=== PATIENT | female | born 1940 | race Caucasian/White ===

== ENCOUNTER 2017-01-30 19:33 | Emergency (ER) | payer MEDICARE, OTHER, SELFPAY | END 2017-01-30 20:13 | disposition home or self-care (01) | PROVIDERS: Emergency Provider Nurse Practitioner Family; Family Provider Family Medicine; Visit Provider Nurse Practitioner Family | DX: N39.0 Urinary tract infection, site not specified (principal); R31.9 Hematuria, unspecified | CPT/HCPCS: 81003; 87086; 87088; 99201 ==

== ENCOUNTER 2018-04-11 16:00 | Outpatient (RCR) | payer MEDICARE, OTHER, SELFPAY ==
--- NOTE | 2018-02-12 14:18 | HMH.PTOPWND ---
Rehab Outpt Wound Evaluation Rehab OP Wound Evaluation Start: 02/12/18 14:11 Freq: Status: Active Protocol: Document 02/12/18 14:11 RAYMOND (Rec: 02/12/18 14:18 PHORNE [id number]) Electronically Signed By Barry Maher, PT 02/12/18 14:11 Subjective/History History History Pt is 77 yowf who presents with c/o worsening right LE edema over the past 2-3 yrs. She reports that she underwent a radical hysterectomy ~ 30 yrs ago with removal of multiple lymph nodes from her abdomen. She reports only very mild edema until recently, and only in the right LE. She reports mild discomfort in the right LE and little edema above the knee. She reports no other significant PMH. Lymphedema Eval Classification of Lymphedema Secondary Lymphedema Yes Stemmer's sign Stemmer's Sign no Stage of Lymphedema Lymphedema stages Stage II (Pitting edema, increased fibrosis w/ decreased pitting) Skin Changes Dry Skin Yes Redness Yes Discoloration of Skin Yes Pain Scale Pain Scale (0-10) 2 Affected Extremities Areas Affected by Lymphedema/Edema Abdomen Right Lower Extremity Manual Lymphatic Drainage Treatment Area MLD Treatment Area Abdomen Right Lower Extremity Wound Problems/Impairments Impairments Problems/Impairmments Palpation Tenderness Increased Edema Lymphedema Present Subjective C/O Pain Impaired Self Care/Self Management Prognosis Rehab Potential Good Clinical Impression Consistent with Diagnosis Yes Short Term Goals Number of Weeks 4 Decreased Palpation Tenderness Yes: to min Decrease Subjective C/O Pain Yes: 1/10 Patient to Understand Lymphedema Yes Treatment and Exercises Decrease Girth Measurments by (cm) Yes: by 5 cm [employer] Goals Number of Weeks 8 Decreased Palpation Tenderness Yes: to none Decrease Subjective C/O Pain Yes: 0/10 Patient to be Ind w/ HEP Yes Patient to be Ind w/ Don[place] Yes Compression Garments Patient to Adhere Lymphedema Precautions Yes Decrease Girth Measurments by (cm) Yes:
== END 2018-04-11 16:05 | disposition home or self-care (01) ==
LOC: PT 16:00
PROVIDERS: Visit Provider Family Medicine
DX: I89.0 Lymphedema, not elsewhere classified (principal)
CPT/HCPCS: 97140; 97162; 97760

== ENCOUNTER → 2018-07-28 08:28 | Outpatient (CLI) | payer MEDICARE, OTHER, SELFPAY ==
[2018-07-28 11:07] LABS: Alanine Aminotransferase 28 U/L (12-78); Albumin Level 3.6 gm/dL (3.4-5.0); Albumin/Globulin Ratio 1.2 (1.1-1.8); Alkaline Phosphatase 106 U/L (46-116); Anion Gap 14.5 mEq/L (5-15); Aspartate Amino Transferase 26 U/L (15-37); Bilirubin,Total 0.7 mg/dL (0.2-1.0); Blood Urea Nitrogen 15 mg/dL (7-18); Calcium 8.8 mg/dL (8.5-10.1); Carbon Dioxide 26 mmol/L (21.0-32.0); Chloride 108 mmol/L (98-107); Cholesterol 133 mg/dL (140-200); Creatinine,Serum 0.73 mg/dL (0.55-1.02); Estimated Glomerular Filt Rate 77 ml/min (>60); GFR (African American) 93 ML/MIN (>60); Glucose 89 mg/dL (74-106); HDL Cholesterol 67 mg/dL (29-89); LDL Cholesterol 56 mg/dL (0-130); Potassium 4.5 mmoL/L (3.5-5.1); Sodium 144 mmol/L (136-145); Total Protein,Serum 6.6 gm/dL (6.4-8.2); Triglycerides 50 mg/dL (30-200); VLDL Cholesterol 10 mg/dL (0-40)
== END ==
PROVIDERS: Visit Provider Family Medicine
DX: E78.5 Hyperlipidemia, unspecified (principal)
CPT/HCPCS: 36415; 80053; 80061

== ENCOUNTER → 2019-06-23 10:19 | Outpatient (CLI) | payer MEDICARE, OTHER, SELFPAY ==
[2019-06-24 18:25] LABS: Covid-19 Nasal PCR Sendout UK Not Detected
== END ==
PROVIDERS: PCP Family Medicine; Visit Provider Ophthalmology
DX: Z03.818 Encounter for observation for suspected exposure to other biological agents ruled out (principal)
CPT/HCPCS: U0003

== ENCOUNTER 2019-06-25 08:05 | Day surgery (SDC) | payer MEDICARE, OTHER, SELFPAY ==
--- NOTE | 2019-06-20 12:16 | SUR.PREOP ---
06/20/2019 @1217--PHONE CALL MADE TO PATIENT. PATIENT UNDERSTANDS THAT LAB WORK AND COVID TESTING NEEDS TO BE COMPLETED @ 1030 ON 06/23/2019 . PATIENT UNDERSTANDS IF LAB WORK AND COVID-19 TESTS ARE NOT COMPLETED BY 12PM ON THAT DATE, THE SURGERY SCHEDULED WILL BE CANCELLED AND RESCHEDULED FOR ANOTHER TIME.
[2019-06-24 14:19] VITALS: BMI 25.7
[2019-06-25] VITALS (8 sets, daily range): BP systolic 121–168; BP diastolic 67–78; PULSE 67–78; RESP 16–18; TEMP 36.5–36.6; O2SAT 96–100
== END 2019-06-25 09:49 | disposition home or self-care (01) ==
LOC: OR 08:08
PROVIDERS: PCP Family Medicine; Visit Provider Ophthalmology
DX: H25.811 Combined forms of age-related cataract, right eye (principal); Z79.899 Other long term (current) drug therapy
CPT/HCPCS: 66984; V2632

== ENCOUNTER → 2019-07-08 09:15 | Outpatient (CLI) | payer MEDICARE, OTHER, SELFPAY ==
[2019-07-08 11:35] LABS: Coronavirus 19 IgG Antibody Negative (Negative); Coronavirus 19 IgM Antibody Negative (Negative)
== END ==
PROVIDERS: Visit Provider Ophthalmology
DX: Z01.818 Encounter for other preprocedural examination (principal)
CPT/HCPCS: 36415; 86328

== ENCOUNTER 2019-07-09 07:22 | Day surgery (SDC) | payer MEDICARE, OTHER, SELFPAY ==
--- NOTE | 2019-07-03 11:21 | SUR.PREOP ---
07/03/2019 @ 9546--PHONE CALL MADE TO PATIENT. PATIENT UNDERSTANDS THAT LAB WORK AND COVID TESTING NEEDS TO BE COMPLETED @ 930 ON 07/08/2019. PATIENT UNDERSTANDS IF LAB WORK AND COVID-19 TESTS ARE NOT COMPLETED BY 12PM ON THAT DATE, THE SURGERY SCHEDULED WILL BE CANCELLED AND RESCHEDULED FOR ANOTHER TIME.
[2019-07-09 08:12] VITALS: BP 170/82; PULSE 68; RESP 18; TEMP 36.6; O2SAT 99; BMI 24.9
[2019-07-09 08:56] VITALS: BP 184/84; PULSE 67; RESP 20; O2SAT 100
[2019-07-09 09:01] VITALS: BP 168/82; PULSE 63; RESP 18; O2SAT 100
[2019-07-09 09:06] VITALS: BP 156/74; PULSE 63; RESP 18; O2SAT 100
[2019-07-09 09:11] VITALS: BP 145/70; PULSE 62; RESP 18; O2SAT 100
[2019-07-09 09:31] VITALS: BP 147/80; PULSE 60; RESP 20; TEMP 36.4; O2SAT 99
== END 2019-07-09 09:31 | disposition home or self-care (01) ==
LOC: OR 07:24
PROVIDERS: PCP Family Medicine; Visit Provider Ophthalmology
DX: H25.813 Combined forms of age-related cataract, bilateral (principal); M19.90 Unspecified osteoarthritis, unspecified site; Z80.9 Family history of malignant neoplasm, unspecified; Z83.518 Family history of other specified eye disorder; Z90.710 Acquired absence of both cervix and uterus; Z79.899 Other long term (current) drug therapy; H53.149 Visual discomfort, unspecified
CPT/HCPCS: 66984; V2632

== ENCOUNTER 2019-11-21 18:23 | Emergency (ER) | payer MEDICARE, OTHER, SELFPAY ==
[2019-11-21] VITALS (9 sets, daily range): BP systolic 138–169; BP diastolic 66–89; PULSE 64–94; RESP 16–18; TEMP 36.6; O2SAT 94–98; BMI 27.8
--- NOTE | 2019-11-21 18:48 | CT_ITS ---
PROCEDURE: CT ABDOMEN PELVIS W CON CLINICAL INDICATION: lower abd pain, hernia Abdominal pain and distension common bloating and constipation COMPARISON: No exams were available for comparison TECHNIQUE: IV Contrast: 75ML OPTIRAY 350 Oral Contrast None Axial images obtained with sagittal and coronal reformats. All CT scans at the facility use one or more dose reduction, viz: automated exposure control, ma/kV adjustment per patient size (including targeted exams where dose is matched to indication, i.e. head), or iterative reconstruction technique. FINDINGS: There are mild atelectatic changes in the lung bases. Hiatal hernia is noted. The liver, spleen, adrenal glands, pancreas, and right kidney has an unremarkable appearance. There is a small left renal cyst at 18 mm. No radiopaque gallstones. No evidence of small-bowel obstruction. There is a moderate amount of stool and gas with distension of the colon involving the cecum, ascending colon transverse colon and descending colon. Air-fluid levels are present.. Scattered diverticular present within the sigmoid colon. No evidence of acute diverticulitis. The there is mild colonic wall thickening in the region of the distal descending colon and proximal sigmoid colon suggesting colitis. The sigmoid colon is not distended with stool ball noted in the mid sigmoid colon. There is narrowing of the sigmoid colon just distal to this region. Possible stricture at this area. The appendix is not clearly delineated. Multiple surgical clips are present in the lower abdomen and pelvis. There is some mild stranding of the fat in the lower pelvic region anteriorly. There is mild distention of the urinary bladder. There has been a prior hysterectomy. Lumbar scoliosis convex left. Mild degenerative changes of the hips and spine. Mild wedging superior endplate of L2 and T12. Small umbilical hernia containing fat. IMPRESSION: 1. Moderate distension and dilatation of the colon to the level of the mid sigmoid colon with transition to nondilated distal: Were small stool ball is present possibly due to a stricture at this region. 2. Mild wall thickening and stranding involving the distal descending colon and proximal sigmoid colon suggesting colitis. 3. Hiatal hernia with other nonacute findings as described above Dictated by: Bruce Burt MD 11/22/2019 06:09 Bruce Burt MD in [facility] 11/22/2019 06:09
[2019-11-21 19:08] LABS: Basophils % 0.3 % (0.1-2.0); Eosinophils # 0.1 K/mm3 (0.0-0.4); Eosinophils % 0.8 % (0.1-12.0); Hematocrit 46.5 % (37.0-47.0); Hemoglobin 14.2 g/dL (12.2-16.2); Lymphocytes # 0.7 K/mm3 (0.7-4.5); Lymphocytes % 5.7 % (10-50); Mean Corpuscular HGB Conc 30.5 g/dL (31.8-35.4); Mean Corpuscular Hemoglobin 28.3 pg (27.0-31.2); Monocytes # 0.5 K/mm3 (0.1-1.0); Monocytes % 3.9 % (1.7-9.3); Neutrophils # 10.9 K/mm3 (1.8-7.8); Neutrophils % 89.3 % (37.0-80.0); Platelet Count 221 K/mm3 (142-424); White Blood Count 12.1 K/mm3 (4.8-10.8)
[2019-11-21 19:11] LABS: MANUAL DIFFERENTIAL MANUAL DIFFERENTIAL (MANUAL DIFF)
--- NOTE | 2019-11-21 19:21 | HMH.EDABDPAI ---
ED Disposition Clinical Impression: Abdominal pain Qualifiers: Abdominal location: generalized Qualified Code(s): R10.84 - Generalized abdominal pain Abdominal hernia Qualifiers: Hernia type: ventral Obstruction and gangrene presence: without obstruction or gangrene Qualified Code(s): K43.9 - Ventral hernia without obstruction or gangrene Disposition: Still a Patient Condition on Discharge: Fair Instructions: DI for Acute Abdomen Referrals: Surya Mitchell MD [Primary Care Provider] - - Critical Care Critical Care Time: No Attestation: On 11/21/19, the high probability of a clinically significant, sudden or life threatening deterioration of the following system(s) required my full and direct attention, intervention and personal management. The time I documented below is in addition to time spent performing reported procedures but includes the following listed in this critical care notation. Medical Decision Making - Medical Records Medical records reviewed: Yes: I reviewed the patient's medical records. - [place] Inquiry Pt receiving controlled substance: No Vital Signs: 11/21/19 18:24 Temperature 98 F Temperature Source Oral Pulse Rate [Radial] 88 Respiratory Rate 16 Blood Pressure [Right Arm] 161/89 H Blood Pressure Mean [Right Arm] 113 Blood Pressure Position [Right Arm] Sitting 02 Sat by Pulse Oximetry 98 Oxygen Delivery Method Room Air - Lab Data Lab Results 11/21/19 18:55: WBC 12.1 H, RBC 5.00, Hgb 14.2, Hct 46.5, MCV 93.0, MCH 28.3, MCHC 30.5 L, RDW 14.0, Plt Count 221, MPV 9.0, Neut % (Auto) 89.3 H, Lymph % (Auto) 5.7 L, [place] % (Auto) 3.9, Eos % (Auto) 0.8, Baso % (Auto) 0.3, Neut # (Auto) 10.9 H, Lymph # (Auto) 0.7, [place] # (Auto) 0.5, Eos # (Auto) 0.1, Baso # (Auto) 0.0, Total Counted 100, Neutrophils % (Manual) 90 H, Band Neutrophils % 2.0, Lymphocytes % (Manual) 5 L, Monocytes % (Manual) 3, Platelet Estimate Normal, RBC Morphology Normal, Hypochromasia 1+, Stomatocytes 1+ 11/21/19 18:55: Sodium 138, Potassium 3.7, Chloride 99, Carbon Dioxide 32 H, Anion Gap 10.7, BUN 18 H, Creatinine 0.70, Estimated Creat Clear 51, Estimated GFR 81, Est GFR ( Amer) 98, Glucose 144 H, Calcium 9.0, Total Bilirubin 0.7, AST 46 H, ALT 23, Alkaline Phosphatase 115, Total Protein 7.8, Albumin 4.5, Globulin 3.3 H, Albumin/Globulin Ratio 1.4 11/21/19 19:32: Lactate 1.1 Result diagrams: 11/21/19 18:55 11/21/19 18:55 Orders (Tests/Meds): ED MEDICATIONS Generic Name Dose Route Start Last Admin Trade Name Freq PRN Reason Stop Dose Admin Sodium Chloride 1,000 mls @ 999 mls/hr 11/21/19 19:15 11/21/19 19:03 Sod Chlor 0.9% 1000ml Bag IV 11/21/19 20:15 999 mls/hr .[id number] NIRMAL Administration Discontinued Medications Generic Name Dose Route Start Last Admin Trade Name Freq PRN Reason Stop Dose Admin Morphine Sulfate 2 mg 11/21/19 19:02 11/21/19 19:03 Morphine 2mg/Ml Syringe IV 11/21/19 19:03 2 mg ONCE ONE Administration Morphine Sulfate 2 mg 11/21/19 19:55 11/21/19 19:58 Morphine 2mg/Ml Syringe IV 11/21/19 19:56 2 mg ONCE ONE Administration Ondansetron HCl 4 mg 11/21/19 19:02 11/21/19 19:03 Ondansetron 4mg/2ml Vial IV 11/21/19 19:03 4 mg ONCE ONE Administration Ondansetron HCl 4 mg 11/21/19 19:56 11/21/19 19:58 Ondansetron 4mg/2ml Vial IV 11/21/19 19:57 4 mg ONCE ONE Administration ORDERS Category Date Time Status CT abdomen pelvis w con Stat Cat Scan 11/21/19 18:48 Ordered UA [Urinalysis and Microscopic] Stat Lab 11/21/19 18:48 Ordered Medical Decision Narrative: In summary this is a 79-year-old female presenting to the emergency department with lower abdominal pain. Patient clinically stable on arrival. Concern for ventral hernia, bowel obstruction, incarceration, urinary tract infection. Plan to obtain CBC, CMP, lipase, lactate, urinalysis, CT scan of the abdomen and pelvis. Patient given 4 mg of IV morphine and 4 mg
--- NOTE | 2019-11-21 19:25 | PC.NURSE ---
received report on this patient. noted family member present at bedside to be staring out of curtain. received call from registration that additional family member was out there. advised registration that due to nature of our census influx, we can allow one visitor at a time. registration acknowledged.
[2019-11-21 19:32] LABS: Lymphocytes % 5 % (10-50); Monocytes % 3 % (2-9); Neutrophils % 90 % (42-76); Total Cells Counted 100
[2019-11-21 19:33] LABS: Hypochromasia 1+; Platelet Estimate Normal; RBC Morphology Normal; Stomatocytes 1+
[2019-11-21 19:39] LABS: Chloride 99 mmol/L (98-107)
[2019-11-21 19:40] LABS: Potassium 3.7 mmoL/L (3.5-5.1); Sodium 138 mmol/L (136-145)
[2019-11-21 19:42] LABS: Alanine Aminotransferase 23 U/L (12-78); Aspartate Amino Transferase 46 U/L (14-36); Blood Urea Nitrogen 18 mg/dl (7-17); Creatinine Clearance Estimated 51 mL/min (50-200); Estimated Glomerular Filt Rate 81 ml/min (>60); GFR (African American) 98 ML/MIN (>60)
[2019-11-21 19:43] LABS: Albumin Level 4.5 g/dl (3.5-5.0); Albumin/Globulin Ratio 1.4 (1.1-1.8); Alkaline Phosphatase 115 U/L (38-126); Anion Gap 10.7 mEq/L (5-15); Bilirubin,Total 0.7 mg/dl (0.2-1.3); Carbon Dioxide 32 mmol/L (22.0-30.0); Globulin 3.3 g/dL (1.3-3.2); Glucose 144 mg/dl (74-100); Total Protein,Serum 7.8 g/dl (6.3-8.2)
[2019-11-21 19:49] LABS: Lactic Acid 1.1 mmol/L (0.7-2.1)
--- NOTE | 2019-11-21 19:58 | PC.NURSE ---
meds given per staff for complaints of pain and nausea. approached room for datascope replacement and patient's family member was directly antagonistic without being provoked; offered that they shouldn't have come here(per daughter); and when questioned, daughter just wouldn't give a direct answer. patient offered that if something was surgically wrong with her that she would want transferred. md and nursing made aware of comments.
--- NOTE | 2019-11-21 21:01 | PC.NURSE ---
this nurse asked pt is she was able to use the bathroom for a urine sample. pt family member stated well one of your nurses asked for a urine hours ago and never came back to get it this nurse apologized and stated they just needed to let the staff know when the pt expressed she was ready to use the bathroom. this nurse asked the pt is she felt like she was able to give a urine at this time and the pt stated she was still unable to go.
[2019-11-21 21:41] LABS: Amylase 92 U/L (30-110); Lipase 22 U/L (23-300)
--- NOTE | 2019-11-21 21:41 | PC.NURSE ---
pt asked if she could have some ice chips.
--- NOTE | 2019-11-21 21:50 | PC.NURSE ---
urine collected from pt
--- NOTE | 2019-11-21 21:52 | PC.NURSE ---
speaking with Dr. Hendricks
--- NOTE | 2019-11-21 21:53 | PC.NURSE ---
this nurse went in and explained to the pt that she could have some ice chips at this time but that she would be made NPO after midnight per the MD. the pt family membr stated shes not staying that doctor needs to come in here and tell us what he found on her scans this nurse explained to the pt that the MD was on the phone with another doctor consulting her care and that he would be in in just a moment to explain everything and answer any questions. this nurse asked if the pt would like ice chips in the mean time and the pt stated no go get the doctor.
--- NOTE | 2019-11-21 21:55 | PC.NURSE ---
notified pt wanted to speak with him and that they were refusing to be admitted. stated pt needs to sign AMA form
[2019-11-21 21:59] LABS: Microscopic, Urine URINE MICROSCOPIC (MICROSCOPIC)
[2019-11-21 22:02] LABS: Appearance,Urine TURBID (Clear); Bilirubin,Urine Negative (Negative); Blood, Urine Negative (Negative); Color,Urine YELLOW (Yellow); Glucose,Urine (UA) Negative (Negative); Ketones,Urine TRACE (Negative); Leukocyte Esterase,Urine Negative (Negative); Nitrate,Urine Negative (Negative); PH,Urine 8.5 (5.0-8.5); Protein,Urine Negative (Negative); Specific Gravity, Urine 1.015 (1.005-1.030); Urobilinogen,Urine 0.2 EU/dl (0.2)
--- NOTE | 2019-11-21 22:07 | PC.NURSE ---
pt stated she was going to sign out AMA. this nurse asked if she wanted to stay and receive her IV antibiotics before leaving and the pt refused those as well. pt stated she might go to another hospital but isnt sure. this nurse told her we would provide her with a disk with her imaging on it.
--- NOTE | 2019-11-21 22:09 | PC.NURSE ---
called RAD for disk with [facility] and not reports.
[2019-11-21 22:20] LABS: Bacteria,Urine 2+ /lpf; RBC,Urine Occasional #/hpf (0-3); Squamous Epithelial Cell,Urine Occasional #/hpf (0-5)
[2019-11-21 22:21] LABS: Amorphous Sediment,Urine 4+ /lpf
== END 2019-11-21 22:42 | disposition still patient (30) ==
PROVIDERS: Emergency Medicine; Emergency Provider Emergency Medicine; PCP Family Medicine
DX: K52.9 Noninfective gastroenteritis and colitis, unspecified (principal); R10.84 Generalized abdominal pain; K43.9 Ventral hernia without obstruction or gangrene; Z85.41 Personal history of malignant neoplasm of cervix uteri; Z79.899 Other long term (current) drug therapy
CPT/HCPCS: 74177; 80053; 81001; 82150; 83605; 83690; 85007; 85025; 87086; 96365; 96375; 96376; 99283; J2405; Q9967

== ENCOUNTER → 2021-04-01 08:49 | Outpatient (CLI) | payer MEDICARE, OTHER, SELFPAY ==
[2021-04-01 09:37] LABS: Basophils % 0.5 % (0.1-2.0); Eosinophils # 0.2 K/mm3 (0.0-0.4); Eosinophils % 4.5 % (0.1-12.0); Hematocrit 40.8 % (37.0-47.0); Hemoglobin 13.5 g/dL (12.2-16.2); Lymphocytes # 1.3 K/mm3 (0.7-4.5); Lymphocytes % 29.1 % (10-50); Mean Corpuscular HGB Conc 33.2 g/dL (31.8-35.4); Mean Corpuscular Volume 96.3 fl (81-99); Mean Platelet Volume 8.3 fl (7.4-10.4); Monocytes # 0.3 K/mm3 (0.1-1.0); Neutrophils # 2.6 K/mm3 (1.8-7.8); Neutrophils % 59.8 % (37.0-80.0); Platelet Count 228 K/mm3 (142-424); Red Blood Count 4.24 M/mm3 (4.20-5.40); Red Cell Distribution Width 13.3 % (11.5-17.5); White Blood Count 4.4 K/mm3 (4.8-10.8)
[2021-04-01 10:02] LABS: Chloride 107 mmol/L (98-107); Potassium 4.2 mmoL/L (3.5-5.1); Sodium 138 mmol/L (136-145)
[2021-04-01 10:04] LABS: Alanine Aminotransferase 17 U/L (12-78); Blood Urea Nitrogen 17 mg/dl (7-17); Estimated Glomerular Filt Rate 80 ml/min (>60); GFR (African American) 97 ML/MIN (>60)
[2021-04-01 10:05] LABS: Albumin/Globulin Ratio 1.5 (1.1-1.8); Alkaline Phosphatase 112 U/L (38-126); Anion Gap 9.2 mEq/L (5-15); Aspartate Amino Transferase 31 U/L (14-36); Bilirubin,Total 0.6 mg/dl (0.2-1.3); Calcium 8.5 mg/dl (8.4-10.2); Carbon Dioxide 26 mmol/L (22.0-30.0); Chol/HDL Ratio 2.5 (1-3.5); Cholesterol 146 mg/dl (140-200); Globulin 2.6 g/dL (1.3-3.2); Glucose 94 mg/dl (74-100); HDL Cholesterol 58 mg/dl (40-60); Total Protein,Serum 6.6 g/dl (6.3-8.2); Triglycerides 77 mg/dl (30-150); VLDL Cholesterol 15 mg/dL (0-40)
[2021-04-01 10:16] LABS: Direct LDL Cholesterol 63.33 mg/dL (100-129)
== END ==
PROVIDERS: Visit Provider Family Medicine
DX: F32.9 Major depressive disorder, single episode, unspecified (principal); E78.5 Hyperlipidemia, unspecified
CPT/HCPCS: 36415; 80053; 80061; 85025

== ENCOUNTER → 2021-10-27 09:28 | Outpatient (CLI) | payer MEDICARE, OTHER, SELFPAY ==
[2021-10-27 10:09] LABS: Basophils # 0.1 K/mm3 (0-0.2); Basophils % 1.2 % (0.1-2.0); Eosinophils # 0.2 K/mm3 (0.0-0.4); Eosinophils % 3.7 % (0.1-12.0); Hematocrit 42.3 % (37.0-47.0); Hemoglobin 13.9 g/dL (12.2-16.2); Lymphocytes # 1.2 K/mm3 (0.7-4.5); Lymphocytes % 20.4 % (10-50); Mean Corpuscular HGB Conc 32.8 g/dL (31.8-35.4); Mean Corpuscular Hemoglobin 31.8 pg (27.0-31.2); Mean Platelet Volume 8.7 fl (7.4-10.4); Monocytes # 0.4 K/mm3 (0.1-1.0); Monocytes % 6.7 % (1.7-9.3); Neutrophils # 4.1 K/mm3 (1.8-7.8); Platelet Count 292 K/mm3 (142-424); Red Blood Count 4.36 M/mm3 (4.20-5.40); White Blood Count 6.1 K/mm3 (4.8-10.8)
[2021-10-27 12:08] LABS: Chloride 103 mmol/L (98-107); Sodium 141 mmol/L (136-145)
[2021-10-27 12:09] LABS: Potassium 4.1 mmoL/L (3.5-5.1)
[2021-10-27 12:11] LABS: Alanine Aminotransferase 19 U/L (12-78); Albumin Level 4.4 g/dl (3.5-5.0); Albumin/Globulin Ratio 1.5 (1.1-1.8); Alkaline Phosphatase 148 U/L (38-126); Anion Gap 11.1 mEq/L (5-15); Aspartate Amino Transferase 36 U/L (14-36); Bilirubin,Total 0.5 mg/dl (0.2-1.3); Blood Urea Nitrogen 25 mg/dl (7-17); Carbon Dioxide 31 mmol/L (22.0-30.0); Estimated Glomerular Filt Rate 60 ml/min (>60); GFR (African American) 73 ML/MIN (>60); Globulin 2.9 g/dL (1.3-3.2); Total Protein,Serum 7.3 g/dl (6.3-8.2)
[2021-10-27 12:12] LABS: Calcium 8.9 mg/dl (8.4-10.2); Chol/HDL Ratio 3.1 (1-3.5); Cholesterol 176 mg/dl (140-200); Glucose 100 mg/dl (74-100); HDL Cholesterol 56 mg/dl (40-60); Triglycerides 107 mg/dl (30-150); VLDL Cholesterol 21 mg/dL (0-40)
[2021-10-27 12:23] LABS: Direct LDL Cholesterol 73.58 mg/dL (100-129)
== END ==
PROVIDERS: PCP Family Medicine; Visit Provider Family Medicine
DX: R53.83 Other fatigue (principal); R60.0 Localized edema; E78.5 Hyperlipidemia, unspecified
CPT/HCPCS: 36415; 80053; 80061; 84443; 85025

== ENCOUNTER → 2022-09-28 08:25 | Outpatient (CLI) | payer MEDICARE, OTHER, SELFPAY ==
[2022-09-28 08:53] LABS: Basophils % 0.3 % (0.1-2.0); Eosinophils # 0.4 K/mm3 (0.0-0.4); Eosinophils % 7.5 % (0.1-12.0); Hematocrit 40.9 % (37.0-47.0); Hemoglobin 13.3 g/dL (12.2-16.2); Lymphocytes # 1.2 K/mm3 (0.7-4.5); Lymphocytes % 21.7 % (10-50); Mean Corpuscular HGB Conc 32.5 g/dL (31.8-35.4); Mean Corpuscular Hemoglobin 32.3 pg (27.0-31.2); Mean Corpuscular Volume 99.2 fl (81-99); Mean Platelet Volume 8.6 fl (7.4-10.4); Monocytes # 0.3 K/mm3 (0.1-1.0); Monocytes % 5.8 % (1.7-9.3); Neutrophils # 3.4 K/mm3 (1.8-7.8); Neutrophils % 64.6 % (37.0-80.0); Platelet Count 230 K/mm3 (142-424); Red Blood Count 4.12 M/mm3 (4.20-5.40); Red Cell Distribution Width 13.3 % (11.5-17.5); White Blood Count 5.3 K/mm3 (4.8-10.8)
[2022-09-28 09:21] LABS: Chloride 100 mmol/L (98-107); Sodium 138 mmol/L (136-145)
[2022-09-28 09:24] LABS: Alanine Aminotransferase 22 U/L (12-78); Albumin Level 3.9 g/dl (3.5-5.0); Albumin/Globulin Ratio 1.4 (1.1-1.8); Alkaline Phosphatase 117 U/L (38-126); Aspartate Amino Transferase 34 U/L (14-36); Bilirubin,Total 0.7 mg/dl (0.2-1.3); Blood Urea Nitrogen 32 mg/dl (7-17); Calcium 9.5 mg/dl (8.4-10.2); Carbon Dioxide 28 mmol/L (22.0-30.0); Cholesterol 134 mg/dl (140-200); Estimated Glomerular Filt Rate 43 ml/min (>60); GFR (African American) 52 ML/MIN (>60); Globulin 2.8 g/dL (1.3-3.2); Glucose 93 mg/dl (74-100); Total Protein,Serum 6.7 g/dl (6.3-8.2); Triglycerides 48 mg/dl (30-150); VLDL Cholesterol 10 mg/dL (0-40)
[2022-09-28 09:25] LABS: Chol/HDL Ratio 2.9 (1-3.5); HDL Cholesterol 47 mg/dl (40-60); Magnesium 2.4 mg/dl (1.6-2.3)
[2022-09-28 09:36] LABS: Direct LDL Cholesterol 64.27 mg/dL (100-129)
[2022-09-28 09:41] LABS: 25-OH Vitamin D, Total 28.8 ng/mL (30-100)
[2022-09-28 09:54] LABS: Thyroid Stimulating Hormone 0.11 uIU/mL (0.465-4.68)
== END ==
PROVIDERS: PCP Family Medicine; Visit Provider Family Medicine
DX: R53.83 Other fatigue (principal); R42 Dizziness and giddiness; E78.5 Hyperlipidemia, unspecified; E55.9 Vitamin D deficiency, unspecified
CPT/HCPCS: 36415; 80053; 80061; 82306; 83735; 84443; 85025

== ENCOUNTER → 2022-10-19 14:43 | Outpatient (CLI) | payer MEDICARE, OTHER, SELFPAY ==
--- NOTE | 2022-10-19 14:53 | US_ITS ---
FINAL REPORT CLINICAL HISTORY: OVER ACTIVE THYROID FINDINGS: Limited sonographic images of the thyroid were obtained. The right lobe of the thyroid measures 4.7 x 2.1 x 1.7 cm. There is a solid, hypoechoic nodule measuring 9 x 7 x 11 mm consistent with TI-RADS category 4. There is a solid, isoechoic nodule measuring 9 x 7 x 7 mm consistent with TI-RADS category 3. The left lobe of the thyroid measures 4.0 x 1.4 x 1.6 cm. There is a spongiform nodule measuring 7 x 6 x 4 mm consistent with TI-RADS category 1. The isthmus measures 5 mm. There is a solid, isoechoic nodule measuring 10 x 7 x 5 mm consistent with TI-RADS category 3. IMPRESSION: Thyroid nodules as detailed above. Recommend follow-up ultrasound in 6-12 months. Reviewed, Interpreted and Dictated by David Witt III, MD Transcribed by Yolis Lew Authenticated and [facility]
== END ==
PROVIDERS: PCP Family Medicine; Visit Provider Family Medicine
DX: E05.90 Thyrotoxicosis, unspecified without thyrotoxic crisis or storm (principal)
CPT/HCPCS: 76536